=== PATIENT | male | born 1960 | race Caucasian/White ===

== ENCOUNTER 2019-09-04 06:58 | Inpatient (IN) | payer BC, SELFPAY ==
[2019-09-04] VITALS (18 sets, daily range): BP systolic 102–198; BP diastolic 57–90; PULSE 60–84; RESP 15–189; TEMP 36.2–37.1; O2SAT 93–100; BMI 61.0
--- NOTE | ~2019-09-04 | XR_ITS ---
EXAMINATION: XR abdomen/kub 1V DATE: 09/06/2019 09:20 INDICATION: Bilateral renal stones. TECHNIQUE: A supine view of the abdomen on 2 radiographs was obtained. COMPARISON: CT abdomen and pelvis 09/04/2019 FINDINGS: Sensitivity is decreased by obesity. There are no dilated loops of bowel. There are bilater al internal ureteral stent in expected position. IMPRESSION: 1. Bilateral internal ureteral stents in expected position. No visible urolithiasis. Reviewed, dictated and finalized at location A. IMPRESSION: 1. Bilateral internal ureteral stents in expected position. No visible urolithi asis.
--- NOTE | ~2019-09-04 | XR_ITS ---
EXAMINATION: XR retrograde pyelo w/stent BI DATE: 09/04/2019 18:36 INDICATION: Bilateral ureteral stones. TECHNIQUE: 50 intraoperative fluoroscopic images of the abdomen and pelvis were obtained. I was not p resent. Fluoroscopy exposure time was 121 seconds. COMPARISON: CT abdomen and pelvis 09/04/2019 FINDINGS: The bilateral retrograde pyelograms demonstrate stones in the bilateral ureters. The final images demonstrate bilateral internal ureteral stents in expected positions. IMPRESSION: 1. Stones in the ureters. 2. Bilateral internal ureteral stents in expected positions. Reviewed, dictated and finalized at location A.
--- NOTE | ~2019-09-04 | CT_ITS ---
EXAMINATION: CT abdomen pelvis wo con DATE: 09/04/2019 10:51 INDICATION: Acute renal failure TECHNIQUE: Computed tomography (CT) of the abdomen and pelvis was performed without intravenous contr ast. The dose-length product (DLP) was 1726.74 mGy-cm. Automated exposure control and iterative recon struction technique were employed. COMPARISON: None FINDINGS: The lung bases are clear. The heart size is normal. The liver, spleen, pancreas, gallbladde r, and adrenal glands are normal. There are stones of the kidneys which measure up to 11 mm on the ri ght and 6 mm on the left. There is a 4 mm stone in the right renal pelvis. There is a 5 mm stone in t he distal right ureter. There are two 5 mm stones in the distal left ureter near the ureterovesicular junction. There is mild bilateral hydroureteronephrosis. No pathologically enlarged abdominal or pel phil lymph nodes are identified. There is no free intraperitoneal gas or evidence of bowel obstruction . The bladder is decompressed by a Erickson catheter. There is moderate lumbar spondylosis. IMPRESSION: 1. Stones in the bilateral distal ureters and a 4 mm stone in the right renal pelvis with mild bilate ral hydroureteronephrosis. 2. Bilateral nephrolithiasis. Reviewed, dictated and finalized at location A. IMPRESSION: 1. Stones in the bilateral distal ureters and a 4 mm stone in the right renal p terell with mild bilateral hydroureteronephrosis. 2. Bilateral nephrolithiasis.
--- NOTE | ~2019-09-04 | US_ITS ---
EXAMINATION: US renal BI DATE: 09/05/2019 14:52 INDICATION: Acute renal insufficiency. Renal stones. TECHNIQUE: Multiple ultrasound grayscale images of the kidneys were obtained. COMPARISON: None. FINDINGS: The right kidney measures 13.4 x 7.4 x 7.7 cm. The left kidney measures 11.1 x 6.4 x 6.7 cm. The kidn eys demonstrate normal echogenicity. There is no hydronephrosis in either kidney. No stones identifi ed. The bladder is nonvisualized, likely decompressed with a Erickson catheter reportedly in place.. IMPRESSION: 1. Normal kidneys without hydronephrosis. Reviewed, dictated and finalized at location A.
[2019-09-04 09:02] LABS: Basophils Percent Auto 0.2 % (0.2-1.2); Eosinophils Absolute Auto 0.1 K/mm3 (0-0.3); Eosinophils Percent Auto 1.1 % (0-4.4); Hemoglobin 12.3 g/dL (14.0-18.0); Immature Granulocyte Absolute 0.05 K/mm3 (0.00-0.031); Immature Granulocyte Percent A 0.5 % (0-0.5); Lymphocytes Absolute Auto 0.85 K/mm3 (0.9-3.2); Lymphocytes Percent Auto 7.8 % (18.3-44.2); Mean Corpuscular HGB Conc 32.4 g/dl (32-36); Mean Corpuscular Hemoglobin 28.6 pg (26-34); Mean Corpuscular Volume 88.4 fl (80-100); Mean Platelet Volume 9.7 fl (7.4-10.4); Monocytes Absolute Auto 1.1 K/mm3 (0.1-0.6); Monocytes Percent Auto 9.7 % (2.6-8.5); Neutrophils Absolute Auto 8.8 K/mm3 (1.3-6.7); Neutrophils Percent Auto 80.7 % (45.5-73.1); Platelet Count Result 215 k/mm3 (150-375); Red Cell Distribution Width 15.1 % (11.5-14.5); White Blood Count 10.9 K/mm3 (4.5-10.0)
[2019-09-04 09:13] LABS: Alanine Aminotransferase 27 U/L (4-50); Albumin Level 3.9 g/dL (3.5-5.1); Alkaline Phosphatase 50 U/L (38-126); Aspartate Amino Transferase 35 U/L (17-59); Bilirubin,Total 0.5 mg/dL (0.2-1.3); Blood Urea Nitrogen 53 mg/dL (9-20); Calcium 8.5 mg/dL (8.4-10.2); Carbon Dioxide 22 mmol/L (22-30); Chloride 102 mmol/L (98-107); Estimated CRCL calculation 19 ml/min; Estimated Glomerular Filt Rate 8; Glucose 121 mg/dL (75-110); Potassium 5.2 mmol/L (3.4-5.0); Sodium 133 mmol/L (137-145)
--- NOTE | 2019-09-04 10:19 | ECG_ITS ---
Measurements Intervals [place] Rate: 76 P: 50 OR: 195 QRS: -28 QRSD: 130 T: 32 QT: 374 QTc: 423 Interpretive Statements SINUS RHYTHM INTRAVENTRICULAR CONDUCTION DELAY DELAYED PRECORDIAL R/S TRANSITION BORDERLINE ECG Electronically Signed On 09-04-2019 16:36:07 CDT by Vinay Shepherd D.O.
--- NOTE | 2019-09-04 10:20 | ED.GENADULT ---
HPI - General Adult General Chief complaint: Urogenital-Male Stated complaint: unable to void/back pain Time Seen by Provider: 09/04/19 09:44 History of Present Illness HPI narrative: Patient presents for no urine since yesterday. His bladder scan showed 50 ML's of urine. Erickson cath was placed and no urine is been obtained. He has had diarrhea for 2 days, watery. No fever chills sweats cough or cold. He has never had anything wrong with his kidneys. He has had pain in his lower back last night 7 out of 10. Surgeries he has had left meniscal repair and varicocele. Does not smoke drink or do drugs. 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 Related Data Home Medications Medication Instructions Recorded Confirmed nebivolol 5 mg tablet 5 mg PO DAILY 07/15/19 ramipril 10 mg capsule 20 mg PO DAILY cap 07/15/19 Allergies Allergy/AdvReac Type Severity Reaction Status Date / Time Penicillins Allergy Unknown Unknown Verified 07/15/19 08:21 Review of Systems Review of Systems: Narrative: CONSTITUTIONAL: Denies fever, chills, or sweats. EYES: Denies visual changes, redness, or discharge. ENT: Denies rhinorrhea, congestion, sore throat, or otalgia. CARDIOVASCULAR: Denies chest pain, palpitations, or edema. RESPIRATORY: Denies cough or dyspnea. GASTROINTESTINAL: Denies abdominal pain, nausea, vomiting, but he has had diarrhea. GENITOURINARY: Denies dysuria or hematuria. SKIN: Denies rash or itching. MUSCULOSKELETAL: He has low back pain, but not joint pain, or myalgia. NEUROLOGIC: Denies headache, numbness, or weakness. PSYCHIATRIC: Denies anxiety or depression. [facility] Past Medical History Medical History Essential (primary) hypertension History of varicocele Morbid obesity Type 2 diabetes mellitus without complication, without long-term current use of insulin Surgical History Surgical History History of left knee surgery Social History Social History Smoking status: Former smoker Alcohol intake: never Exam Narrative: Exam Narrative: GENERAL: Well-appearing, well-nourished, and in no acute distress. Morbid obesity, thick neck. HEAD: Normocephalic, atraumatic. EYES: PERRLA and EOMI. ENT: Nares clear, no rhinorrhea or epistaxis. Mucous membranes dry. NECK: Supple. CHEST: Clear to auscultation. No respiratory distress. HEART: Regular rate and rhythm. No murmur heard. Normal peripheral pulses. ABDOMEN: Soft, nontender, nondistended, normal active bowel sounds. EXTREMITIES: Normal range of motion. No edema. SKIN: Warm, dry, no rash. NEURO: No focal deficits. Alert and oriented x3. PSYCH: Normal mood and affect. Course Course Emergency Course: Call Dr. Banks earlier and he said he would consult. Reevaluation(s) Reevaluation #1: We need to tell the patient about his kidney stones and his is not present. He did not know he had stones, no one in his family has kidney stones. He will be admitted with a nephrology consult and then possibly a urology consult. Date: 09/04/19 Time: 11:37 Consultations Consultation #1: Call the hospitalist for admission. Dr. Greene accepts. Date: 09/04/19 Time: 11:46 Vital Signs Vital signs: Vital Signs Temperature 97.3 F L 09/04/19 07:04 Pulse Rate 82 09/04/19 07:04 Respiratory Rate 20 09/04/19 07:04 Blood Pressure 198/90 H 09/04/19 07:04 Pulse Oximetry 97 09/04/19 07:04 Temperature 97.3 F L 09/04/19 07:10 Pulse Rate 78 09/04/19 11:38 Respiratory Rate 189 H 09/04/19 11:38 Blood Pressure 153/76 H 09/04/19 11:38 Pulse Oximetry 96 09/04/19 10:34 Medical Decision Making Medical Records Medical records reviewed: Yes I reviewed the patient's medical records. Vital Signs Vital Signs: Vital Signs Temperature 97.3 F L 09/04/19 07:04 Pulse Rate 82 09/04/19 07:04 R
[2019-09-04] MEDS: SODIUM CHLORIDE 0.9% IV 1,000 ML 999 ML IV CONT (10:30)
--- NOTE | 2019-09-04 13:42 | PC.NURSE ---
This patient, Nigel Tomas, was admitted to 3 [facility] Surg Room 316-01. Patient/family oriented to hospital policies and general routines including ID bracelet, bed and alarms, visiting hours, pain management, procedures, bathroom and other care routines, personal items, smoking policy, room service/diet, and visiting hours. Valuables list has been completed. Information on how to activate the Rapid Response Team has been discussed. Patient/Family are encouraged to report perceived risks to care and to ask questions if they do not understand what they are told or what they should do.
--- NOTE | 2019-09-04 14:37 | PM.CNNEP ---
Assessment and Plan Assessment and plan (1) Acute renal failure: Qualifiers: Acute renal failure type: unspecified Qualified Code(s): N17.9 - Acute kidney failure, unspecified Code(s): N17.9 - Acute kidney failure, unspecified Status: Acute (2) Bilateral kidney stones: Code(s): N20.0 - Calculus of kidney Status: Acute (3) Hydronephrosis: Qualifiers: Hydronephrosis type: with renal calculous obstruction Qualified Code(s): N13.2 - Hydronephrosis with renal and ureteral calculous obstruction Code(s): N13.30 - Unspecified hydronephrosis Status: Acute (4) Essential (primary) hypertension: Code(s): I10 - Essential (primary) hypertension Status: Acute (5) Hyperkalemia: Code(s): E87.5 - Hyperkalemia Status: Acute Assessment and Plan: . Additional Plan Nigel has acute kidney injury/acute renal failure as evidenced by his admission labs. Presumably, the etiology of this insult is secondary to his bilateral nephrolithiasis/kidney stones causing bilateral hydroureteronephrosis as evidence by his CT scan earlier today. However, other factors that may have played a role with regard to his rising creatinine include the use of ramipril and nonsteroidal anti-inflammatory drugs. Urology has already been consulted with the tentative plan for status on cystoscopy and further intervention depending what is found during this procedure. I suspect he probably may get bilateral ureteral stents but I will defer this decision to Urology. We will have to follow his kidney function following this intervention/procedure to see if his kidney function normalizes to its baseline. I am assuming he has normal kidney function based on my discussion with him but he does have several risk factors for kidney disease in general including diabetes, hypertension, and obesity. I will continue follow the patient with you while remains hospitalized and make further recommendations during his hospital course. Thank you for allowing me to participate in the care this patient. History of Present Illness Reason for Consult Consult date: 09/04/19 Reason for consult: acute renal failure Chief Complaint Chief complaint: acute renal failure/diarrhea/kidney stones History of Present Illness Narrative: The patient is a 59 year old with a past medical history as outlined below who presented to [facility] with a complaint of inability to urinate. The patient states that he has noted that he has not had any urine output for close to 24 hours which is somewhat unusual for him. Furthermore, he also gave complaints of on/off bilateral flank pain with radiation to his groin on and off as well. Because of these complaints he came to the ER for further evaluation. Workup and evaluation emergency room demonstrate the patient to be hemodynamically stable and routine blood test demonstrated significant renal dysfunction/acute renal failure. He had no critical electrolyte abnormalities although his potassium was mildly elevated. Further evaluation included a CT scan of his abdomen pelvis which demonstrated bilateral kidney stones with associated hydroureteronephrosis. He was subsequently admitted to the hospital for further evaluation and therapy. Renal consultation was requested due to his acute kidney injury/acute renal failure. According to the patient, he has never had any issues or problems with his kidneys in the past and follows up with his primary care physician routinely particularly since he has diabetes. He has no reported history of kidney stones either and reports no other family members with this condition as well. For reasons that are unclear to me, Urology was not consulted from the ER after the findings of his CT scan but after my discussion with Dr. Mirtha Jimenez, he did contact the urologist workers compensation specialist and the plan is for the patient to tentatively undergo cystoscopy with
--- NOTE | 2019-09-04 16:01 | PC.NURSE ---
To OR per bed, IV #20 RT hand, SL.
--- NOTE | 2019-09-04 16:07 | PM.IMHP ---
H&P: HPI History of Present Illness Chief complaint: acute renal failure/diarrhea/kidney stones Narrative: Nigel Tomas is a 59 year old male morbidly obese male with history of diabetes and hypertension presented emergency department with a complaint bilateral flank pain on and off radiating to his groin and was not able to urinate close to 24 hours Erickson catheter was placed in the emergency depart no urine output, he also had few episode of diarrhea yesterday which have now resolved he denies any nausea vomiting fever or chills, patient has no history of kidney stone. in Emergency department patient had a CT scan of abdomen which showed patient has a bilateral kidney stone with hydronephrosis, discussed with urologist recommending patient will need cystoscopy and removal of the stone and placement of stents, upon arrival patient creatinine was 7 and BUN 55 discussed with marketing segment manager suspect most likely secondary to hydronephrosis, seen by marketing segment manager and further workup in progress, patient denies any complaint of chest pain his able to ambulate without any shortness of breath however is unable to climb any stairs due to his pain in his knee and morbid obesity, patient has had general anesthesia in the past without any complication, will clear the patient for the surgery Review of Systems Review of Systems: All systems reviewed & are unremarkable except as noted in HPI and below PMFSH Past Medical History Medical History Essential (primary) hypertension History of varicocele Morbid obesity Type 2 diabetes mellitus without complication, without long-term current use of insulin Surgical History Surgical History History of left knee surgery Family History Family History Mother Hypertension Cerebrovascular accident Family history of diabetes mellitus in first degree relative Family history of malignant neoplasm of uterus Social History Social History Smoking packs per day: 1 Smoking cigarettes per day: 20.0 Years smoked: 2 Smoking pack-years: 2.00 Smoking status: Former smoker Tobacco type: cigarettes Alcohol intake: never Substance use: never Substance use type: does not use Gender identity (if verbalized by the patient): Male Sexual Orientation (if Verbalized by the Patient): Straight or Heterosexual Spiritual care concerns: No Meds Home Medications and Allergies Home Medications Medication Instructions Recorded Confirmed Type meloxicam 15 mg tablet 15 mg PO DAILY #90 tablet 03/01/19 09/04/19 Rx ezetimibe 10 mg tablet 10 mg PO DAILY #90 tablet 03/07/19 09/04/19 Rx hydrochlorothiazide 25 mg tablet 25 mg PO DAILY #90 tablet 03/07/19 09/04/19 Rx fluticasone propionate 50 1 spray NASAL DAILY #15.8 ml 05/08/19 09/04/19 Rx mcg/actuation nasal spray,suspension testosterone cypionate 200 mg/mL 200 mg IM .COMPLEX #10 ml 05/19/19 09/04/19 Rx intramuscular oil metformin 1,000 mg tablet See Rx Instructions PO DAILY #180 07/15/19 09/04/19 Rx tablet nebivolol 5 mg tablet 5 mg PO DAILY 07/15/19 09/04/19 History omeprazole 20 mg capsule,delayed 20 mg PO DAILY #90 cap 07/15/19 09/04/19 Rx release ramipril 10 mg capsule 20 mg PO DAILY cap 07/15/19 09/04/19 History aspirin 81 mg PO DAILY 09/04/19 09/04/19 History calcium polycarbophil [FiberCon] 1,250 mg PO BID 09/04/19 09/04/19 History Allergies Allergy/AdvReac Type Severity Reaction Status Date / Time Penicillins Allergy Unknown Unknown Verified 07/15/19 08:21 Vital Signs Vital Signs - 24 hr 09/04/19 07:04 09/04/19 07:10 09/04/19 10:34 Temperature 97.3 F L 97.3 F L Pulse Rate 82 82 74 Respiratory Rate 20 18 18 Blood Pressure 198/90 H 198/90 H 165/73 H Pulse Oximetry 97 97 96 09/04/19 11:38
--- NOTE | 2019-09-04 16:17 | WPDANESEPPF ---
Anes - Initial Pre Proc Eval Procedure: Operation Date: 09/04/19 17:00 Proposed Procedures p Cysto, RPG, Stone Ext, Stent Placement - Micah Escudero MD Date/Time: 09/04/19 16:17 Surgeon: Rafal Greene MD Pre Op Diagnosis: acute renal failure/diarrhea/kidney stones Patient Data Age: 59 Gender: M Height: 6 ft Weight: 204.12 kg Last Vital Signs Temp 37.1 C 09/04/19 13:50 Pulse 76 09/04/19 13:50 Resp 18 09/04/19 13:50 BP 192/88 H 09/04/19 13:50 Pulse Ox 98 09/04/19 13:50 Allergies Allergy/AdvReac Type Severity Reaction Status Date / Time Penicillins Allergy Unknown Unknown Verified 07/15/19 08:21 Home Medications Medication Instructions Recorded Confirmed Type meloxicam 15 mg tablet 15 mg PO DAILY #90 tablet 03/01/19 09/04/19 Rx ezetimibe 10 mg tablet 10 mg PO DAILY #90 tablet 03/07/19 09/04/19 Rx hydrochlorothiazide 25 mg tablet 25 mg PO DAILY #90 tablet 03/07/19 09/04/19 Rx fluticasone propionate 50 1 spray NASAL DAILY #15.8 ml 05/08/19 09/04/19 Rx mcg/actuation nasal spray,suspension testosterone cypionate 200 mg/mL 200 mg IM .COMPLEX #10 ml 05/19/19 09/04/19 Rx intramuscular oil metformin 1,000 mg tablet See Rx Instructions PO DAILY #180 07/15/19 09/04/19 Rx tablet nebivolol 5 mg tablet 5 mg PO DAILY 07/15/19 09/04/19 History omeprazole 20 mg capsule,delayed 20 mg PO DAILY #90 cap 07/15/19 09/04/19 Rx release ramipril 10 mg capsule 20 mg PO DAILY cap 07/15/19 09/04/19 History aspirin 81 mg PO DAILY 09/04/19 09/04/19 History calcium polycarbophil [FiberCon] 1,250 mg PO BID 09/04/19 09/04/19 History Laboratory Tests 09/04/19 09/04/19 08:57 08:57 WBC 10.9 K/mm3 H K/mm3 (4.5-10.0) RBC 4.30 M/mm3 L M/mm3 (4.6-6.20) Hgb 12.3 g/dL L g/dL (14.0-18.0) Hct 38.0 % L % (42.0-52.0) MCV 88.4 fl fl (80-100) MCH 28.6 pg pg (26-34) MCHC 32.4 g/dl g/dl (32-36) RDW 15.1 % H % (11.5-14.5) Plt Count 215 k/mm3 k/mm3 (150-375) MPV 9.7 fl fl (7.4-10.4) Immature Gran % (Auto) 0.5 % % (0-0.5) Neut % (Auto) 80.7 % H % (45.5-73.1) Lymph % (Auto) 7.8 % L % (18.3-44.2) [place] % (Auto) 9.7 % H % (2.6-8.5) Eos % (Auto) 1.1 % % (0-4.4) Baso % (Auto) 0.2 % % (0.2-1.2) Lymph # (Auto) 0.85 K/mm3 L K/mm3 (0.9-3.2) [place] # (Auto) 1.1 K/mm3 H K/mm3 (0.1-0.6) Eos # (Auto) 0.1 K/mm3 K/mm3 (0-0.3) Baso # (Auto) 0.0 K/mm3 K/mm3 (0.0-0.1) Abs Immat Gran (auto) 0.05 K/mm3 H K/mm3 (0.00-0.031) Absolute Neuts (auto) 8.8 K/mm3 H K/mm3 (1.3-6.7) Absolute Nucleated RBC 0.0 K/mm3 K/mm3 (0.0-0.012) Nucleated RBC % 0.0 % % (0.0-0.2) Sodium 133 mmol/L L mmol/L (137-145) Potassium 5.2 mmol/L H mmol/L (3.4-5.0) Chloride 102 mmol/L mmol/L (98-107) Carbon Dioxide 22 mmol/L mmol/L (22-30) BUN 53 mg/dL H mg/dL (9-20) Creatinine 7.00 mg/dL H mg/dL (0.7-1.3) Estim Creat Clear Calc 19 ml/min ml/min Estimated GFR 8 L (59 - ) Glucose 121 mg/dL H mg/dL (75-110) Calcium 8.5 mg/dL mg/dL (8.4-10.2) Total Bilirubin 0.5 mg/dL mg/dL (0.2-1.3) AST 35 U/L U/L (17-59) ALT 27 U/L U/L (4-50) Alkaline Phosphatase 50 U/L U/L (38-126) Total Protein 7.0 g/dL g/dL (6.3-8.2) Albumin 3.9 g/dL g/dL (3.5-5.1) Patient hx anesthesia problems: none Family hx anesthesia problems: none [facility] Past Medical History Medical History Essential (primary) hypertension History of varicocele Morbid obesity Type 2 diabetes mellitus without complication, without long-term current use of insulin Surgical History Surgical History History of left knee surgery Family History F
--- NOTE | 2019-09-04 17:04 | WPDURCON ---
Assessment and Plan Assessment and plan (1) Hydronephrosis: Qualifiers: Hydronephrosis type: with renal calculous obstruction Qualified Code(s): N13.2 - Hydronephrosis with renal and ureteral calculous obstruction Code(s): N13.30 - Unspecified hydronephrosis Status: Acute Assessment and Plan: Patient need emergent cystoscopy and stenting. Will plan to extract both stones with ureteroscopy and possible laser lithotripsy (2) Bilateral kidney stones: Code(s): N20.0 - Calculus of kidney Status: Acute (3) Acute renal failure: Qualifiers: Acute renal failure type: unspecified Qualified Code(s): N17.9 - Acute kidney failure, unspecified Code(s): N17.9 - Acute kidney failure, unspecified Status: Acute Assessment and Plan: Needs ureteral obstruction relieved-------acute renal failue noted and discussed medical and surgical treatments (4) Type 2 diabetes mellitus without complication, without long-term current use of insulin: Code(s): E11.9 - Type 2 diabetes mellitus without complications Status: Acute Assessment and Plan: per admitting Urology Consult Note HPI Date Seen: 09/04/19 Requesting Physician: Rafal Greene MD Primary Care Provider: Ben Esquivel MD Consult Narrative Narrative: Nigel Tomas is a 59 year old male with bilateral ureteral stones and acute renal failure. He is now anuric. Denies fever or chills. Has some nausea and admitted with bilateral renal colic pain. Review of Systems Constitutional: Constitutional: Reports no additional constitutional complaints Eyes: Eyes: Reports no additional eye complaints ENT: Reports Normal hearing present Cardiovascular: Cardiovascular: Reports no additional cardiovascular complaints and Denies chest pain Respiratory: Respiratory: Reports no additional respiratory complaints Musculoskeletal: Musculoskeletal: Reports no additional musculoskeletal complaints Neurologic: Reports system reviewed and no additional complaints, except as documented Allergic/Immunologic: Allergic/Immunologic: Reports no additional allergic/immunologic complaints [facility] Past Medical History Medical History Essential (primary) hypertension History of varicocele Morbid obesity Type 2 diabetes mellitus without complication, without long-term current use of insulin Surgical History Surgical History History of left knee surgery Family History Family History Mother Hypertension Cerebrovascular accident Family history of diabetes mellitus in first degree relative Family history of malignant neoplasm of uterus Social History Social History Smoking packs per day: 1 Smoking cigarettes per day: 20.0 Years smoked: 2 Smoking pack-years: 2.00 Smoking status: Former smoker Tobacco type: cigarettes Alcohol intake: never Substance use: never Substance use type: does not use Gender identity (if verbalized by the patient): Male Sexual Orientation (if Verbalized by the Patient): Straight or Heterosexual Spiritual care concerns: No Meds Home Medications and Allergies Home Medications Medication Instructions Recorded Confirmed Type meloxicam 15 mg tablet 15 mg PO DAILY #90 tablet 03/01/19 09/04/19 Rx ezetimibe 10 mg tablet 10 mg PO DAILY #90 tablet 03/07/19 09/04/19 Rx hydrochlorothiazide 25 mg tablet 25 mg PO DAILY #90 tablet 03/07/19 09/04/19 Rx fluticasone propionate 50 1 spray NASAL DAILY #15.8 ml 05/08/19 09/04/19 Rx mcg/actuation nasal spray,suspension testosterone cypionate 200 mg/mL 200 mg IM .COMPLEX #10 ml 05/19/19 09/04/19 Rx intramuscular oil metformin 1,000 mg tablet See Rx Instructions PO DAILY #180 07/14
[2019-09-04] MEDS: levoFLOXacin 500 MG/D5W 100 ML 500 MG/100 ML BAG 100 MG IVPB (17:44)
[2019-09-04] MEDS: LIDOCAINE HCL 2% GEL UROJET 10 ML PKG MUCOUS MEM (18:02)
--- NOTE | 2019-09-04 18:18 | PM.PROC ---
Procedure Note - Detailed Date of procedure: 09/04/19 Pre-op diagnosis: acute renal failure/diarrhea/kidney stones Surgeon: Micah Escudero MD Pre Op Dx: Bilateral ureteral stones, acute renal failure Post Op Dx: same Anesthesia: Genreral Operation: cystoscopy, bilateral ureteroscopy and stone extractions, bilateral stents
[2019-09-04] MEDS: LACTATED RINGERS 1,000 ML 30 ML IV CONT (18:25)
[2019-09-04 19:26] LABS: Glucose Point of Care 90 (65-105)
--- NOTE | 2019-09-04 23:37 | OP_ITS ---
DATE OF PROCEDURE: 09/04/2019 PREOPERATIVE DIAGNOSES: Bilateral ureteral calculus, bilateral hydronephrosis, acute renal failure. POSTOPERATIVE DIAGNOSES: Bilateral ureteral calculus, bilateral hydronephrosis, acute renal failure. OPERATION: Cystourethroscopy with bilateral retrograde pyelogram, bilateral ureteroscopy with stone extraction, bilateral ureteral stents. COMPLICATIONS: None. ANESTHESIA: General anesthetic. ESTIMATED BLOOD LOSS: Negligible. SPECIMENS: Bilateral ureteral calculi. HISTORY AND OPERATIVE COURSE: The patient is a pleasant 59-year-old gentleman with morbid obesity and type 2 diabetes, began having abrupt onset of pain, prompting this evaluation in the emergency room, he was found to have bilateral ureteral calculi and laboratory values consistent with acute renal failure. He had been anuric over the majority of today. He signed a consent. DESCRIPTION OF PROCEDURE: He was brought back to the operating room. General anesthetic was achieved with LMA. He was positioned in lithotomy. His phallus, scrotum, lower abdomen and pelvis were dressed and draped in normal sterile fashion. Cystourethroscopy was used to examine the urethra past the prostate into the bladder. The bladder revealed no obvious mass lesions or abnormalities with some mild trabeculation. The ureteral orifices were visualized. There was no efflux seen from either. I first shot a retrograde study in the right side near the distal stone visualized in the intramural portion of the ureter with subsequent hydronephrosis. There is also mentioning that he may have a stone in the renal pelvis, which was difficult to see given the size of the patient. In addition, he has a sizable stone in the right kidney and there is suggestion of a stone visualized. 8/10 dilator to dilate the ureter and incomplete ureteroscopy with mini-Storz ureteroscope. I was then able to complete stone extraction using escape basket. The stone was grasped and removed in its entirety. Ureterostomy was completed again. I could not get the scope any further than the pelvic inlet and retrograde study demonstrated no extravasation and filling throughout the ureter up into the renal pelvis. The ureteroscope was removed under direct vision. The guidewire was left in place, and over the guidewire a stent was placed in a retrograde fashion through the cystoscope. This a 6-Honduran stent with a variable length up to 30 cm. I then focused my attention on the left side, a similar procedure was completed and retrograde study actually demonstrated 2 stones in the distal ureter. I was able to negotiate guidewire via the stones up into the kidney and 8/10 dilator was once again used to dilate the distal ureter. Ureteroscopy was completed and the stones were grasped and removed one at a time in their entirety within escape basket. On the side, I also placed a stent, this is the same size stent. A 6-Honduran by variable length up to 30 cm. There was good curl visualized in the renal pelves on both sides and a good curl was visualized in the bladder via the cystoscope. There was some old appearing bloody debris on the right side and some milky appearing to be drained on the left side. I left the Erickson catheter in place. The patient was transferred in the recovery area in stable condition. Addis I MT: Fam
[2019-09-05] VITALS (8 sets, daily range): BP systolic 135–160; BP diastolic 62–82; PULSE 63–75; RESP 16–20; TEMP 36.3–37.2; O2SAT 95–97
--- NOTE | 2019-09-05 01:04 | PC.NURSE ---
pt returns from surgery alert and awake. refused meal at this time however is taking oral fluid well w/o n/v. 09/04/192019
[2019-09-05 04:02] LABS: Creatinine Urine 69.4 mg/dL; Total Protein Urine Random 92 mg/dL
[2019-09-05 04:13] LABS: Sodium Urine Random 56 meq/L
[2019-09-05 06:47] LABS: Hematocrit 34.4 % (42.0-52.0); Mean Corpuscular Hemoglobin 28.8 pg (26-34); Mean Corpuscular Volume 90.1 fl (80-100); Mean Platelet Volume 9.8 fl (7.4-10.4); Platelet Count Result 185 k/mm3 (150-375); Red Blood Count 3.82 M/mm3 (4.6-6.20); Red Cell Distribution Width 15.5 % (11.5-14.5); White Blood Count 9.2 K/mm3 (4.5-10.0)
[2019-09-05 07:25] LABS: Albumin Level 3.5 g/dL (3.5-5.1); Blood Urea Nitrogen 55 mg/dL (9-20); Calcium 8.1 mg/dL (8.4-10.2); Carbon Dioxide 25 mmol/L (22-30); Chloride 103 mmol/L (98-107); Estimated CRCL calculation 18 ml/min; Estimated Glomerular Filt Rate 8; Glucose 95 mg/dL (75-110); Phosphorus 5.6 mg/dL (2.5-4.5); Potassium 4.7 mmol/L (3.4-5.0); Sodium 137 mmol/L (137-145)
[2019-09-05 07:32] LABS: Blood Urea Nitrogen 54 mg/dL (9-20); Carbon Dioxide 25 mmol/L (22-30); Chloride 103 mmol/L (98-107); Estimated CRCL calculation 19 ml/min; Estimated Glomerular Filt Rate 8; Glucose 94 mg/dL (75-110); Potassium 4.6 mmol/L (3.4-5.0); Sodium 135 mmol/L (137-145)
--- NOTE | 2019-09-05 08:37 | WPDANESPN ---
Anes - Prog Note Post-Op Date/Time: 09/05/19 08:37 Cardiovascular status: normal Respiratory status: normal Airway patency: baseline Mental status: baseline Post-Op hydration status: normal Vital Signs: Last Vital Signs Temp 36.3 C L 09/05/19 06:41 Pulse 68 09/05/19 06:41 Resp 18 09/05/19 06:41 BP 148/71 H 09/05/19 06:41 Pulse Ox 97 09/05/19 06:41 I/O: Intake & Output 09/04/19 09/05/19 09/05/19 23:59 07:59 15:59 Intake Total 950 500 Output Total 375 3100 Balance 575 -2600 Laboratory Tests 09/05/19 06:12 09/05/19 06:12 09/04/19 09/04/19 09/04/19 08:57 08:57 19:24 WBC 10.9 H RBC 4.30 L Hgb 12.3 L Hct 38.0 L MCV 88.4 MCH 28.6 MCHC 32.4 RDW 15.1 H Plt Count 215 MPV 9.7 Immature Gran % (Auto) 0.5 Neut % (Auto) 80.7 H Lymph % (Auto) 7.8 L [place] % (Auto) 9.7 H Eos % (Auto) 1.1 Baso % (Auto) 0.2 Lymph # (Auto) 0.85 L [place] # (Auto) 1.1 H Eos # (Auto) 0.1 Baso # (Auto) 0.0 Abs Immat Gran (auto) 0.05 H Absolute Neuts (auto) 8.8 H Absolute Nucleated RBC 0.0 Nucleated RBC % 0.0 Sodium 133 L Potassium 5.2 H Chloride 102 Carbon Dioxide 22 BUN 53 H Creatinine 7.00 H Estim Creat Clear Calc 19 Estimated GFR 8 L Glucose 121 H POC Capillary Glucose 90 Calcium 8.5 Phosphorus Total Bilirubin 0.5 AST 35 ALT 27 Alkaline Phosphatase 50 Total Protein 7.0 Albumin 3.9 Urine Eosinophils Ur Random Creatinine U Random Total Protein Ur Random Sodium Ur Random Chloride U Random Chloride/Creat Urine Total Volume Urine Creatinine 09/05/19 09/05/19 09/05/19 03:38 03:38 03:38 WBC RBC Hgb Hct MCV MCH MCHC RDW Plt Count MPV Immature Gran % (Auto) Neut % (Auto) Lymph % (Auto) [place] % (Auto) Eos % (Auto) Baso % (Auto) Lymph # (Auto) [place] # (Auto) Eos # (Auto) Baso # (Auto) Abs Immat Gran (auto) Absolute Neuts (auto) Absolute Nucleated RBC Nucleated RBC % Sodium Potassium Chloride Carbon Dioxide BUN Creatinine Estim Creat Clear Calc Estimated GFR Glucose POC Capillary Glucose Calcium Phosphorus Total Bilirubin AST ALT Alkaline Phosphatase Total Protein Albumin Urine Eosinophils Pending Ur Random Creatinine Pending U Random Total Protein Ur Random Sodium 56 Ur Random Chloride Pending U Random Chloride/Creat Pending Urine Total Volume Urine Creatinine Cancelled 09/05/19 09/05/19 09/05/19 03:38 03:38 06:12 WBC 9.2 RBC 3.82 L Hgb 11.0 L Hct 34.4 L MCV 90.1 MCH 28.8 MCHC 32.0 RDW 15.5 H Plt Count 185 MPV 9.8 Immature Gran % (Auto) Neut % (Auto) Lymph % (Auto) [place] % (Auto) Eos % (Auto) Baso % (Auto) Lymph # (Auto) [place] # (Auto) Eos # (Auto) Baso # (Auto) Abs Immat Gran (auto) Absolute Neuts (auto) Absolute Nucleated RBC Nucleated RBC % Sodium Potassium Chloride Carbon Dioxide BUN Creatinine Estim Creat Clear Calc Estimated GFR Glucose POC Capillary Glucose Calcium Phosphorus Total Bilirubin AST ALT Alkaline Phosphatase Total Protein Albumin Urine Eosinophils Ur Random Creatinine U Random Total Protein 92 Cancelled Ur Random Sodium Ur Random Chloride U Random Chloride/Creat Urine Total Volume Cancelled Urine Creatinine 69.4 09/05/19 09/05/19 06:12 06:12 WBC RBC Hgb Hct MCV MCH MCHC RDW Plt Count MPV Immature Gran % (Auto) Neut % (Auto) Lymph % (Auto) [place] % (Auto) Eos % (Auto) Baso % (Auto) Lymph # (Auto) [place] # (Auto) Eos # (Auto) Baso # (Auto) Abs Immat Gran (auto) Absolute Neuts (auto) Absolute Nucleated RBC Nucleated
[2019-09-05] MEDS: SODIUM CHLORIDE 0.9% IV 1,000 ML 125 ML IV CONT ×2 (08:52→20:49)
[2019-09-05] MEDS: NEBIVOLOL HCL 5 MG TABLET PO (08:59)
[2019-09-05] MEDS: calcium polycarbophiL 625 MG TABLET 1250 MG PO ×2 (08:59→16:35)
[2019-09-05] MEDS: EZETIMIBE 10 MG TABLET PO (08:59)
[2019-09-05] MEDS: ASPIRIN 81 MG CHEWABLE TABLET PO (08:59)
[2019-09-05] MEDS: PANTOPRAZOLE 40 MG TABLET PO (08:59)
[2019-09-05] MEDS: ramipriL 5 MG CAPSULE 20 MG PO (09:00)
[2019-09-05] MEDS: FLUTICASONE PROPIONATE 0.05% NA SPR 16 GM BTL (*BKC) 1 SPRAY NASAL (09:01)
--- NOTE | 2019-09-05 09:03 | SUR.PHASEI ---
LATE ENTRY: URINE DRAINING FROM [facility].
--- NOTE | 2019-09-05 10:16 | WPDUROPN2 ---
Progress Note: A&P Assessment and Plan (1) Bilateral ureteral calculi: Code(s): N20.1 - Calculus of ureter Status: Acute Assessment and Plan: stents to be removed as a outpt (2) Renal insufficiency: Code(s): N28.9 - Disorder of kidney and ureter, unspecified Status: Acute (3) Bilateral kidney stones: Code(s): N20.0 - Calculus of kidney Status: Acute Assessment and Plan: outpt treatment Subjective Subjective Date/Time Seen: 09/05/19 10:16 no issues. Tolerating stents Exam Const: General: no acute distress Extrem: General: normal to inspection Objective Data Vital Signs Vital Signs: Vital Signs - 24 hr 09/04/19 10:34 09/04/19 11:38 09/04/19 13:00 Temperature Pulse Rate 74 78 75 Respiratory Rate 18 189 H 18 Blood Pressure 165/73 H 153/76 H 169/77 H Pulse Oximetry 96 100 09/04/19 13:43 09/04/19 13:50 09/04/19 18:25 Temperature 98.7 F 97.1 F L Pulse Rate 75 76 84 Respiratory Rate 18 18 25 H Blood Pressure 192/88 H 102/57 L Pulse Oximetry 100 98 97 09/04/19 18:40 09/04/19 18:55 09/04/19 19:10 Temperature 97.4 F L Pulse Rate 72 73 70 Respiratory Rate 18 18 19 Blood Pressure 193/83 H 174/84 H 174/80 H Pulse Oximetry 97 97 94 09/04/19 19:25 09/04/19 19:40 09/04/19 20:10 Temperature 97.7 F Pulse Rate 70 72 60 Respiratory Rate 16 15 20 Blood Pressure 174/80 H 165/77 H 152/71 H Pulse Oximetry 93 94 96 09/04/19 21:11 09/04/19 22:30 09/04/19 22:40 Temperature 97.6 F Pulse Rate 69 69 64 Respiratory Rate 18 Blood Pressure 147/68 H Pulse Oximetry 97 97 09/04/19 22:41 09/05/19 00:00 09/05/19 02:41 Temperature 97.1 F L 97.3 F L Pulse Rate 65 67 63 Respiratory Rate 20 18 Blood Pressure 140/62 135/62 Pulse Oximetry 97 97 09/05/19 04:00 09/05/19 06:41 Temperature 97.4 F L Pulse Rate 67 68 Respiratory Rate 18 Blood Pressure 148/71 H Pulse Oximetry 97 Intake/Output Intake/Output: Intake & Output 09/02/19 09/03/19 09/04/19 09/05/19 23:59 23:59 23:59 23:59 Intake Total 1950 500 Output Total 375 3100 Balance 1575 -2600 Meds/Results Medications: Active Medications Generic Name Dose Route Start Last Admin Trade Name Freq PRN Reason Stop Dose Admin Acetaminophen 650 mg 09/04/19 12:23 Tylenol Tablet PO Q4H PRN Mild Pain (1-3) or Fever Aspirin 81 mg 09/05/19 09:00 09/05/19 08:59 Aspirin Chewable PO 81 mg DAILY BASSAM Administration Calcium Polycarbophil 1,250 mg 09/05/19 09:00 09/05/19 08:59 Fiber Con PO 1,250 mg BID BASSAM Administration Ezetimibe 10 mg 09/05/19 09:00 09/05/19 08:59 Zetia PO 10 mg DAILY BASSAM Administration Fluticasone Propionate 1 spray 09/05/19 09:00 09/05/19 09:01 Flonase 0.05% Nasal [place] NASAL 1 spray DAILY BASSAM Administration Hydrochlorothiazide 25 mg 09/05/19 09:00 Hydrochlorothiazide PO DAILY BASSAM Sodium Chloride 1,000 mls @ 125 mls/hr 09/05/19 08:10 09/05/19 08:52 Normal Saline Iv IV CONT 125 mls/hr .Q8H BASSAM Administration Nebivolol 5 mg 09/05/19 09:00 09/05/19 08:59 Bystolic PO 5 mg DAILY BASSAM Administration Ondansetron HCl 4 mg 09/04/19 12:23 Zofran Inj IV PUSH Q4H PRN Nausea Pantoprazole Sodium 40 mg 09/05/19 09:00 09/05/19 08:59 Protonix PO 10/05/19 09:01 40 mg DAILY BASSAM Administration Ramipril 20 mg 09/05/19 09:00 09/05/19 09:00 Altace PO 20 mg DAILY BASSAM Administration Radiology Results: ITS Impressions Abdomen/Pelvis CT 09/04/19 11:01 IMPRESSION: 1. Stones in the bilateral distal ureters and a 4 mm stone in the right renal pelvis with mild bilateral hydroureteronephrosis. 2. Bilateral nephrolithiasis. Retrograde Pyelogram 09/04/19 19:01 IMPRESSION: 1. Stones in the ureters. 2. Bilateral internal ureteral stents in expected positions. Labs Labs: Laboratory Results - last 24 hr 09/04/19 06/
--- NOTE | 2019-09-05 13:19 | PM.PNNEP ---
Progress Note: A&P Assessment and Plan (1) Acute renal failure: Qualifiers: Acute renal failure type: unspecified Qualified Code(s): N17.9 - Acute kidney failure, unspecified Code(s): N17.9 - Acute kidney failure, unspecified Status: Acute Assessment and Plan: Multiple kidney stones in both ureters. Stents are in place. Large amount of urine. Will get another renal panel in the morning (2) Bilateral kidney stones: Code(s): N20.0 - Calculus of kidney Status: Acute Assessment and Plan: Urology managing this. Once procedures have all been done then we can get 24hour urines a month or 2 later to investigate causes of formation of the stones. (3) Hydronephrosis: Qualifiers: Hydronephrosis type: with renal calculous obstruction Qualified Code(s): N13.2 - Hydronephrosis with renal and ureteral calculous obstruction Code(s): N13.30 - Unspecified hydronephrosis Status: Acute Assessment and Plan: Stents in place (4) Essential (primary) hypertension: Code(s): I10 - Essential (primary) hypertension Status: Acute Assessment and Plan: Blood pressure is doing pretty well. (5) Hyperkalemia: Code(s): E87.5 - Hyperkalemia Status: Acute Assessment and Plan: . Resolved Additional Plan Subjective Date/time seen: 09/05/19 13:19 Interval history: Patient is alert. He feels better. Urine output is way up. No chest pain or shortness of breath. Not much swelling. He does occasionally have some at home. Review of Systems Cardiovascular: Cardiovascular: Reports no additional cardiovascular complaints Respiratory: Respiratory: Reports no additional respiratory complaints Gastrointestinal: Gastrointestinal: Reports no additional gastrointestinal complaints Genitourinary: Genitourinary: Reports no additional male genitourinary complaints Exam Narrative: Exam Narrative: WDWN in NAD skin no rash head ncat lungs clear cor reg no rub abd BS+ nontender and soft ext no edema. Or cyanosis Objective Data Vital Signs Vital Signs: Vital Signs - 24 hr 09/04/19 13:43 09/04/19 13:50 09/04/19 18:25 Temperature 37.1 C 36.2 C L Pulse Rate 75 76 84 Respiratory Rate 18 18 25 H Blood Pressure 192/88 H 102/57 L Pulse Oximetry 100 98 97 09/04/19 18:40 09/04/19 18:55 09/04/19 19:10 Temperature 36.3 C L Pulse Rate 72 73 70 Respiratory Rate 18 18 19 Blood Pressure 193/83 H 174/84 H 174/80 H Pulse Oximetry 97 97 94 09/04/19 19:25 09/04/19 19:40 09/04/19 20:10 Temperature 36.5 C Pulse Rate 70 72 60 Respiratory Rate 16 15 20 Blood Pressure 174/80 H 165/77 H 152/71 H Pulse Oximetry 93 94 96 09/04/19 21:11 09/04/19 22:30 09/04/19 22:40 Temperature 36.4 C Pulse Rate 69 69 64 Respiratory Rate 18 Blood Pressure 147/68 H Pulse Oximetry 97 97 09/04/19 22:41 09/05/19 00:00 09/05/19 02:41 Temperature 36.2 C L 36.3 C L Pulse Rate 65 67 63 Respiratory Rate 20 18 Blood Pressure 140/62 135/62 Pulse Oximetry 97 97 09/05/19 04:00 09/05/19 06:41 Temperature 36.3 C L Pulse Rate 67 68 Respiratory Rate 18 Blood Pressure 148/71 H Pulse Oximetry 97 Intake/Output Intake/Output: Intake & Output 09/02/19 09/03/19 09/04/19 09/05/19 23:59 23:59 23:59 23:59 Intake Total 1950 740 Output Total 375 3100 Balance 1575 -2360 Meds/Results Medications: Active Medications Generic Name Dose Route Start Last Admin Trade Name Freq PRN Reason Stop Dose Admin Acetaminophen 650 mg 09/04/19 12:23 Tylenol Tablet PO Q4H PRN Mild Pain (1-3) or Fever Aspirin 81 mg 09/05/19 09:00 09/05/19 08:59 Aspirin Chewable PO 81 mg DAILY BASSAM Administration Calcium Polycarbophil 1,250 mg 09/05/19 09:00 09/05/19 08:59 Fiber Con PO 1,250 mg BID BASSAM Administration Ezetimibe 10 mg 09/05/19 09:00 09/05/19 08:59 Zetia PO 10 mg
[2019-09-05] MEDS: hydroCHLOROthiazide 25 MG TABLET PO (16:35)
--- NOTE | 2019-09-05 17:50 | PM.IMPN ---
Progress Note: A&P Assessment and Plan (1) Hydronephrosis: Qualifiers: Hydronephrosis type: with renal calculous obstruction Qualified Code(s): N13.2 - Hydronephrosis with renal and ureteral calculous obstruction Code(s): N13.30 - Unspecified hydronephrosis Status: Acute Assessment and Plan: Nigel Tomas is a 59 year old male morbidly obese male with history of diabetes and hypertension presented emergency department with a complaint bilateral flank pain on and off radiating to his groin and was not able to urinate close to 24 hours Reickson catheter was placed in the emergency depart no urine output, he also had few episode of diarrhea yesterday which have now resolved he denies any nausea vomiting fever or chills, patient has no history of kidney stone. in Emergency department patient had a CT scan of abdomen which showed patient has a bilateral kidney stone with hydronephrosis, discussed with urologist recommending patient will need cystoscopy and removal of the stone and placement of stents, upon arrival patient creatinine was 7 and BUN 55 discussed with patient scheduling manager suspect most likely secondary to hydronephrosis, seen by patient scheduling manager and further workup in progress, on 09/03 patient was seen by urologist and taken to urology lab had a cystoscopy and stones were removed stents were placed patient was able to urinate, today patient is feeling much better has been producing lot of urine, has any abdominal pain nausea or vomiting fever or chills patient creatinine is still elevated to 7 will continue hydrate the patient patient is seen by patient scheduling manager and further recommendation to follow (2) Bilateral kidney stones: Code(s): N20.0 - Calculus of kidney Status: Acute Assessment and Plan: Plan is Plan is (3) Type 2 diabetes mellitus without complication, without long-term current use of insulin: Code(s): E11.9 - Type 2 diabetes mellitus without complications Status: Acute Assessment and Plan: Resume home medication and monitor (4) Essential (primary) hypertension: Code(s): I10 - Essential (primary) hypertension Status: Acute Assessment and Plan: Resume home medication and monitor (5) Acute renal failure: Qualifiers: Acute renal failure type: unspecified Qualified Code(s): N17.9 - Acute kidney failure, unspecified Code(s): N17.9 - Acute kidney failure, unspecified Status: Acute Assessment and Plan: Plan is above Subjective Date/time seen: 09/05/19 17:50 Interval history: Nigel Tomas is a 59 year old male morbidly obese male with history of diabetes and hypertension presented emergency department with a complaint bilateral flank pain on and off radiating to his groin and was not able to urinate close to 24 hours Erickson catheter was placed in the emergency depart no urine output, he also had few episode of diarrhea yesterday which have now resolved he denies any nausea vomiting fever or chills, patient has no history of kidney stone. in Emergency department patient had a CT scan of abdomen which showed patient has a bilateral kidney stone with hydronephrosis, discussed with urologist recommending patient will need cystoscopy and removal of the stone and placement of stents, upon arrival patient creatinine was 7 and BUN 55 discussed with patient scheduling manager suspect most likely secondary to hydronephrosis, seen by patient scheduling manager and further workup in progress, on 09/03 patient was seen by urologist and taken to urology lab had a cystoscopy and stones were removed stents were placed patient was able to urinate, today patient is feeling much better has been producing lot of urine, has any abdominal pain nausea or vomiting fever or chills patient creatinine is still elevated to 7 will continue hydrate the patient patient is seen by patient scheduling manager and further recommendation to follow Review of Systems Review of Systems: All systems reviewed & are u
[2019-09-06 06:00] VITALS: BP 142/76; PULSE 66; RESP 20; TEMP 37.2; O2SAT 95
[2019-09-06] MEDS: SODIUM CHLORIDE 0.9% IV 1,000 ML 125 ML IV CONT ×3 (06:11→23:15)
[2019-09-06 06:13] LABS: Hematocrit 34.8 % (42.0-52.0); Mean Corpuscular HGB Conc 31.6 g/dl (32-36); Mean Corpuscular Hemoglobin 28.5 pg (26-34); Mean Corpuscular Volume 90.2 fl (80-100); Mean Platelet Volume 9.9 fl (7.4-10.4); Platelet Count Result 195 k/mm3 (150-375); Red Blood Count 3.86 M/mm3 (4.6-6.20); Red Cell Distribution Width 15.6 % (11.5-14.5); White Blood Count 8.7 K/mm3 (4.5-10.0)
[2019-09-06 06:25] LABS: Potassium 4.6 mmol/L (3.4-5.0)
[2019-09-06 06:29] LABS: Albumin Level 3.5 g/dL (3.5-5.1); Blood Urea Nitrogen 52 mg/dL (9-20); Calcium 8.4 mg/dL (8.4-10.2); Carbon Dioxide 27 mmol/L (22-30); Chloride 106 mmol/L (98-107); Estimated CRCL calculation 29 ml/min; Estimated Glomerular Filt Rate 13; Glucose 111 mg/dL (75-110); Phosphorus 4.8 mg/dL (2.5-4.5); Sodium 138 mmol/L (137-145)
--- NOTE | 2019-09-06 07:33 | PM.PNNEP ---
Progress Note: A&P Assessment and Plan (1) Acute renal failure: Qualifiers: Acute renal failure type: unspecified Qualified Code(s): N17.9 - Acute kidney failure, unspecified Code(s): N17.9 - Acute kidney failure, unspecified Status: Acute Assessment and Plan: Multiple kidney stones in both ureters. Stents are in place. Large amount of urine. Creatinine fell from 7-4. He is eating well. We can stop the IV fluids. (2) Bilateral kidney stones: Code(s): N20.0 - Calculus of kidney Status: Acute Assessment and Plan: Urology managing this. Once procedures have all been done then we can get 24hour urines a month or 2 later to investigate causes of formation of the stones. (3) Hydronephrosis: Qualifiers: Hydronephrosis type: with renal calculous obstruction Qualified Code(s): N13.2 - Hydronephrosis with renal and ureteral calculous obstruction Code(s): N13.30 - Unspecified hydronephrosis Status: Acute Assessment and Plan: Stents in place (4) Essential (primary) hypertension: Code(s): I10 - Essential (primary) hypertension Status: Acute Assessment and Plan: Blood pressure is a bit high. At home he was on hydrochlorothiazide, and ramipril. Will start amlodipine now. Resume the above two when creatinine is better. (5) Hyperkalemia: Code(s): E87.5 - Hyperkalemia Status: Acute Assessment and Plan: . Resolved Additional Plan Subjective Date/time seen: 09/06/19 07:33 Interval history: Patient is alert. He feels better. Urine output is still generous. No problems breathing. Eating is okay. Review of Systems Cardiovascular: Cardiovascular: Reports no additional cardiovascular complaints Respiratory: Respiratory: Reports no additional respiratory complaints Gastrointestinal: Gastrointestinal: Reports no additional gastrointestinal complaints Genitourinary: Genitourinary: Reports no additional male genitourinary complaints Exam Narrative: Exam Narrative: WDWN in NAD skin no rash or subcu nodules head ncat lungs clear bilaterally cor reg no rub abd BS+ nontender and soft ext no edema. Objective Data Vital Signs Vital Signs: Vital Signs - 24 hr 09/05/19 08:00 09/05/19 12:00 09/05/19 18:41 Temperature 36.4 C Pulse Rate 72 75 75 Respiratory Rate 16 Blood Pressure 154/69 H Pulse Oximetry 97 09/05/19 22:00 Temperature 37.2 C Pulse Rate 69 Respiratory Rate 20 Blood Pressure 160/82 H Pulse Oximetry 95 Intake/Output Intake/Output: Intake & Output 09/03/19 09/04/19 09/05/19 09/06/19 23:59 23:59 23:59 23:59 Intake Total 1950 3490 1000 Output Total 375 6600 Balance 1575 -3110 1000 Meds/Results Medications: Active Medications Generic Name Dose Route Start Last Admin Trade Name Freq PRN Reason Stop Dose Admin Acetaminophen 650 mg 09/04/19 12:23 Tylenol Tablet PO Q4H PRN Mild Pain (1-3) or Fever Aspirin 81 mg 09/05/19 09:00 09/05/19 08:59 Aspirin Chewable PO 81 mg DAILY BASSAM Administration Calcium Polycarbophil 1,250 mg 09/05/19 09:00 09/05/19 16:35 Fiber Con PO 1,250 mg BID BASSAM Administration Ezetimibe 10 mg 09/05/19 09:00 09/05/19 08:59 Zetia PO 10 mg DAILY BASSAM Administration Fluticasone Propionate 1 spray 09/05/19 09:00 09/05/19 09:01 Flonase 0.05% Nasal [place] NASAL 1 spray DAILY BASSAM Administration Hydrochlorothiazide 25 mg 09/05/19 09:00 09/05/19 16:35 Hydrochlorothiazide PO 25 mg DAILY BASSAM Administration Sodium Chloride 1,000 mls @ 125 mls/hr 09/05/19 08:10 09/06/19 06:11 Normal Saline Iv IV CONT 125 mls/hr .Q8H BASSAM Administration Nebivolol 5 mg 09/05/19 09:00 09/05/19 08:59 Bystolic PO 5 mg DAILY BASSAM Administration Ondansetron HCl 4 mg 09/04/19 12:23 Zofran Inj IV PUSH Q4H PRN Nausea Pantoprazole Sodium
[2019-09-06 07:44] VITALS: PULSE 66
[2019-09-06] MEDS: calcium polycarbophiL 625 MG TABLET 1250 MG PO ×2 (07:44→17:56)
[2019-09-06] MEDS: NEBIVOLOL HCL 5 MG TABLET PO (07:44)
[2019-09-06] MEDS: ASPIRIN 81 MG CHEWABLE TABLET PO (07:44)
[2019-09-06] MEDS: ramipriL 5 MG CAPSULE 20 MG PO (07:44)
[2019-09-06] MEDS: PANTOPRAZOLE 40 MG TABLET PO (07:44)
[2019-09-06] MEDS: EZETIMIBE 10 MG TABLET PO (07:44)
[2019-09-06] MEDS: FLUTICASONE PROPIONATE 0.05% NA SPR 16 GM BTL (*BKC) 1 SPRAY NASAL (07:44)
[2019-09-06] MEDS: hydroCHLOROthiazide 25 MG TABLET PO (07:44)
--- NOTE | 2019-09-06 08:48 | WPDUROPN2 ---
Progress Note: A&P Assessment and Plan (1) Bilateral kidney stones: Code(s): N20.0 - Calculus of kidney Status: Acute Assessment and Plan: Will obtain KUB for surgical planning, although stones are non obstructive and do not require attention during this hospitalization. (2) Bilateral ureteral calculi: Code(s): N20.1 - Calculus of ureter Status: Acute Assessment and Plan: Resolved, removed during Cystoscopy. (3) Hydronephrosis: Qualifiers: Hydronephrosis type: with renal calculous obstruction Qualified Code(s): N13.2 - Hydronephrosis with renal and ureteral calculous obstruction Code(s): N13.30 - Unspecified hydronephrosis Status: Acute Assessment and Plan: Resolved per ALIVIA 09/05/[address] on 09/04/2019, with stent placement. Stents to be removed in 2-3 weeks in the office. Ok to discharge home at anytime once creatinine returns to baseline, per Urology. Subjective Subjective Date/Time Seen: 09/06/19 08:48 Patient improving, no pain, urine is clearing up as well. Review of Systems Respiratory: Respiratory: Reports no additional respiratory complaints Gastrointestinal: Gastrointestinal: Denies abdominal pain, Denies nausea and Denies vomiting Genitourinary: Genitourinary: Reports no additional male genitourinary complaints Exam Resp: Effort & Inspection: normal respiratory effort Cardio: Rate: regular rate GI: GI Palp: No abdominal tenderness : General: No CVA tenderness Urinary Catheter: Urinary Catheter: patent and draining, urine clear and urine dark Objective Data Vital Signs Vital Signs: Vital Signs - 24 hr 09/05/19 12:00 09/05/19 18:41 09/05/19 22:00 Temperature 97.6 F 99 F Pulse Rate 75 75 69 Respiratory Rate 16 20 Blood Pressure 154/69 H 160/82 H Pulse Oximetry 97 95 09/06/19 06:00 09/06/19 07:44 Temperature 99 F Pulse Rate 66 66 Respiratory Rate 20 Blood Pressure 142/76 H Pulse Oximetry 95 Intake/Output Intake/Output: Intake & Output 09/03/19 09/04/19 09/05/19 09/06/19 23:59 23:59 23:59 23:59 Intake Total 1950 3490 1700 Output Total 375 6600 2950 Balance 1575 3110 -1250 Meds/Results Medications: Active Medications Generic Name Dose Route Start Last Admin Trade Name Freq PRN Reason Stop Dose Admin Acetaminophen 650 mg 09/04/19 12:23 Tylenol Tablet PO Q4H PRN Mild Pain (1-3) or Fever Amlodipine Besylate 2.5 mg 09/06/19 09:00 Norvasc PO QAM BASSAM Aspirin 81 mg 09/05/19 09:00 09/06/19 07:44 Aspirin Chewable PO 81 mg DAILY BASSAM Administration Calcium Polycarbophil 1,250 mg 09/05/19 09:00 09/06/19 07:44 Fiber Con PO 1,250 mg BID BASSAM Administration Ezetimibe 10 mg 09/05/19 09:00 09/06/19 07:44 Zetia PO 10 mg DAILY BASSAM Administration Fluticasone Propionate 1 spray 09/05/19 09:00 09/06/19 07:44 Flonase 0.05% Nasal [place] NASAL 1 spray DAILY BASSAM Administration Hydrochlorothiazide 25 mg 09/05/19 09:00 09/06/19 07:44 Hydrochlorothiazide PO 25 mg DAILY BASSAM Administration Sodium Chloride 1,000 mls @ 125 mls/hr 09/05/19 08:10 09/06/19 06:11 Normal Saline Iv IV CONT 125 mls/hr .Q8H BASSAM Administration Nebivolol 5 mg 09/05/19 09:00 09/06/19 07:44 Bystolic PO 5 mg DAILY BASSAM Administration Ondansetron HCl 4 mg 09/04/19 12:23 Zofran Inj IV PUSH Q4H PRN Nausea Pantoprazole Sodium 40 mg 09/05/19 09:00 09/06/19 07:44 Protonix PO 10/05/19 09:01 40 mg DAILY BASSAM Administration Ramipril 20 mg 09/05/19 09:00 09/06/19 07:44 Altace PO 20 mg DAILY BASSAM Administration Radiology Results: ITS Impressions Abdomen/Pelvis CT 09/04/19 11:01 IMPRESSION: 1. Stones in the bilateral distal ureters and a 4 mm stone in the right renal pelvis with mild bilateral hydroureteronephrosis. 2. Bilateral nephrolithiasis. Retrograde Pyelogram 09/04/19
[2019-09-06] MEDS: AMLODIPINE BESYLATE 2.5 MG TABLET PO (12:02)
--- NOTE | 2019-09-06 13:00 | PM.IMPN ---
Progress Note: A&P Assessment and Plan (1) Hydronephrosis: Qualifiers: Hydronephrosis type: with renal calculous obstruction Qualified Code(s): N13.2 - Hydronephrosis with renal and ureteral calculous obstruction Code(s): N13.30 - Unspecified hydronephrosis Status: Acute Assessment and Plan: 09/06/19 13:01 Nigel Tomas is a 59 year old male morbidly obese male with history of diabetes and hypertension presented emergency department with a complaint bilateral flank pain on and off radiating to his groin and was not able to urinate close to 24 hours Erickson catheter was placed in the emergency depart no urine output, he also had few episode of diarrhea yesterday which have now resolved he denies any nausea vomiting fever or chills, patient has no history of kidney stone. in Emergency department patient had a CT scan of abdomen which showed patient has a bilateral kidney stone with hydronephrosis, discussed with urologist recommending patient will need cystoscopy and removal of the stone and placement of stents, upon arrival patient creatinine was 7 and BUN 55 discussed with security systems engineer suspect most likely secondary to hydronephrosis, seen by security systems engineer and further workup in progress, on 09/03 patient was seen by urologist and taken to urology lab had a cystoscopy and stones were removed stents were placed patient was able to urinate, on 09/04 patient was feeling much better has been producing lot of urine, does not have any abdominal pain nausea or vomiting fever or chills patient creatinine was still elevated to 7. continued to hydrate the patient, today patient creatinine has trended down to 4 will continue present management, patient is seen by security systems engineer and further recommendation to follow (2) Bilateral kidney stones: Code(s): N20.0 - Calculus of kidney Status: Acute Assessment and Plan: Plan is Plan is (3) Type 2 diabetes mellitus without complication, without long-term current use of insulin: Code(s): E11.9 - Type 2 diabetes mellitus without complications Status: Acute Assessment and Plan: Resume home medication and monitor, will hold metformin (4) Essential (primary) hypertension: Code(s): I10 - Essential (primary) hypertension Status: Acute Assessment and Plan: Patient is seen by Nephrology added amlodipine, will hold lisinopril resume once creatinine is close to normal (5) Acute renal failure: Qualifiers: Acute renal failure type: unspecified Qualified Code(s): N17.9 - Acute kidney failure, unspecified Code(s): N17.9 - Acute kidney failure, unspecified Status: Acute Assessment and Plan: Plan is above Subjective Date/time seen: 09/06/19 13:01 Nigel Tomas is a 59 year old male morbidly obese male with history of diabetes and hypertension presented emergency department with a complaint bilateral flank pain on and off radiating to his groin and was not able to urinate close to 24 hours Erickson catheter was placed in the emergency depart no urine output, he also had few episode of diarrhea yesterday which have now resolved he denies any nausea vomiting fever or chills, patient has no history of kidney stone. in Emergency department patient had a CT scan of abdomen which showed patient has a bilateral kidney stone with hydronephrosis, discussed with urologist recommending patient will need cystoscopy and removal of the stone and placement of stents, upon arrival patient creatinine was 7 and BUN 55 discussed with security systems engineer suspect most likely secondary to hydronephrosis, seen by security systems engineer and further workup in progress, on 09/03 patient was seen by urologist and taken to urology lab had a cystoscopy and stones were removed stents were placed patient was able to urinate, on 09/04 patient was feeling much better has been producing lot of urine, does not have any abdominal pain nausea or vomiting fever or chills patient cr
[2019-09-06 14:00] VITALS: BP 150/66; PULSE 60; RESP 16; TEMP 36.3; O2SAT 98
[2019-09-06 21:51] VITALS: BP 140/84; PULSE 64; RESP 18; TEMP 36.8; O2SAT 97
[2019-09-06 23:25] VITALS: PULSE 68; O2SAT 97
[2019-09-07 06:00] VITALS: BP 146/58; PULSE 66; RESP 20; TEMP 36.8; O2SAT 97
[2019-09-07 06:46] LABS: Basophils Percent Auto 0.3 % (0.2-1.2); Eosinophils Absolute Auto 0.5 K/mm3 (0-0.3); Eosinophils Percent Auto 6.7 % (0-4.4); Hematocrit 34.6 % (42.0-52.0); Immature Granulocyte Absolute 0.02 K/mm3 (0.00-0.031); Immature Granulocyte Percent A 0.3 % (0-0.5); Lymphocytes Absolute Auto 1.27 K/mm3 (0.9-3.2); Lymphocytes Percent Auto 17.1 % (18.3-44.2); Mean Corpuscular HGB Conc 31.8 g/dl (32-36); Mean Corpuscular Hemoglobin 28.5 pg (26-34); Mean Corpuscular Volume 89.6 fl (80-100); Mean Platelet Volume 9.5 fl (7.4-10.4); Monocytes Absolute Auto 0.8 K/mm3 (0.1-0.6); Monocytes Percent Auto 10.2 % (2.6-8.5); Neutrophils Absolute Auto 4.9 K/mm3 (1.3-6.7); Neutrophils Percent Auto 65.4 % (45.5-73.1); Platelet Count Result 198 k/mm3 (150-375); Red Blood Count 3.86 M/mm3 (4.6-6.20); Red Cell Distribution Width 15.5 % (11.5-14.5); White Blood Count 7.4 K/mm3 (4.5-10.0)
[2019-09-07] MEDS: SODIUM CHLORIDE 0.9% IV 1,000 ML 125 ML IV CONT (06:53)
[2019-09-07 07:09] LABS: Albumin Level 3.7 g/dL (3.5-5.1); Blood Urea Nitrogen 38 mg/dL (9-20); Calcium 8.5 mg/dL (8.4-10.2); Carbon Dioxide 30 mmol/L (22-30); Chloride 106 mmol/L (98-107); Estimated CRCL calculation 47 ml/min; Estimated Glomerular Filt Rate 23; Glucose 107 mg/dL (75-110); Phosphorus 3.9 mg/dL (2.5-4.5); Potassium 4.1 mmol/L (3.4-5.0); Sodium 139 mmol/L (137-145)
[2019-09-07 08:00] VITALS: PULSE 66; RESP 20; O2SAT 97
[2019-09-07] MEDS: ramipriL 5 MG CAPSULE 20 MG PO (10:00)
[2019-09-07] MEDS: PANTOPRAZOLE 40 MG TABLET PO (10:06)
[2019-09-07] MEDS: AMLODIPINE BESYLATE 2.5 MG TABLET PO (10:09)
[2019-09-07] MEDS: EZETIMIBE 10 MG TABLET PO (10:10)
[2019-09-07] MEDS: calcium polycarbophiL 625 MG TABLET 1250 MG PO (10:11)
[2019-09-07] MEDS: FLUTICASONE PROPIONATE 0.05% NA SPR 16 GM BTL (*BKC) 1 SPRAY NASAL (10:11)
[2019-09-07] MEDS: NEBIVOLOL HCL 5 MG TABLET PO (10:12)
[2019-09-07] MEDS: ASPIRIN 81 MG CHEWABLE TABLET PO (10:13)
[2019-09-07] MEDS: hydroCHLOROthiazide 25 MG TABLET PO (10:13)
[2019-09-07 14:00] VITALS: BP 146/71; PULSE 67; RESP 16; TEMP 36.7; O2SAT 97
--- NOTE | 2019-09-07 16:15 | PM.DS ---
DS: Admitting Diagnosis Admitting Diagnosis Admitting Diagnosis: Hydronephrosis with renal and ureteral calculous obstruction DS: Discharge Diagnosis Discharge Diagnosis (1) Hydronephrosis: Qualifiers: Hydronephrosis type: with renal calculous obstruction Qualified Code(s): N13.2 - Hydronephrosis with renal and ureteral calculous obstruction Code(s): N13.30 - Unspecified hydronephrosis Status: Acute Assessment and Plan: 09/06/19 13:01 Nigel Tomas is a 59 year old male morbidly obese male with history of diabetes and hypertension presented emergency department with a complaint bilateral flank pain on and off radiating to his groin and was not able to urinate close to 24 hours Erickson catheter was placed in the emergency depart no urine output, he also had few episode of diarrhea yesterday which have now resolved he denies any nausea vomiting fever or chills, patient has no history of kidney stone. in Emergency department patient had a CT scan of abdomen which showed patient has a bilateral kidney stone with hydronephrosis, discussed with urologist recommending patient will need cystoscopy and removal of the stone and placement of stents, upon arrival patient creatinine was 7 and BUN 55 discussed with medical information specialist suspect most likely secondary to hydronephrosis, seen by medical information specialist and further workup in progress, on 09/03 patient was seen by urologist and taken to urology lab had a cystoscopy and stones were removed stents were placed patient was able to urinate, on 09/04 patient was feeling much better has been producing lot of urine, does not have any abdominal pain nausea or vomiting fever or chills patient creatinine was still elevated to 7. continued to hydrate the patient, today patient creatinine has trended down to 4 will continue present management, patient is seen by medical information specialist and further recommendation to follow (2) Bilateral kidney stones: Code(s): N20.0 - Calculus of kidney Status: Acute Assessment and Plan: Plan is Plan is (3) Type 2 diabetes mellitus without complication, without long-term current use of insulin: Code(s): E11.9 - Type 2 diabetes mellitus without complications Status: Acute Assessment and Plan: Resume home medication and monitor, will hold metformin (4) Essential (primary) hypertension: Code(s): I10 - Essential (primary) hypertension Status: Acute Assessment and Plan: Patient is seen by Nephrology added amlodipine, will hold lisinopril resume once creatinine is close to normal (5) Acute renal failure: Qualifiers: Acute renal failure type: unspecified Qualified Code(s): N17.9 - Acute kidney failure, unspecified Code(s): N17.9 - Acute kidney failure, unspecified Status: Acute Assessment and Plan: Plan is above DS: Summary Hospital Course Reason for hospitalization: Nigel Tomas is a 59 year old male morbidly obese male with history of diabetes and hypertension presented emergency department with a complaint bilateral flank pain on and off radiating to his groin and was not able to urinate close to 24 hours Erickson catheter was placed in the emergency depart no urine output, he also had few episode of diarrhea yesterday which have now resolved he denies any nausea vomiting fever or chills, patient has no history of kidney stone. in Emergency department patient had a CT scan of abdomen which showed patient has a bilateral kidney stone with hydronephrosis, discussed with urologist recommending patient will need cystoscopy and removal of the stone and placement of stents, upon arrival patient creatinine was 7 and BUN 55 discussed with medical information specialist suspect most likely secondary to hydronephrosis, seen by medical information specialist and further workup in progress, patient denies any complaint of chest pain his able to ambulate without any shortness of breath however is unable to climb any stairs due to his pain in
--- NOTE | 2019-09-07 16:28 | PM.PNNEP ---
Progress Note: A&P Assessment and Plan (1) Acute renal failure: Qualifiers: Acute renal failure type: unspecified Qualified Code(s): N17.9 - Acute kidney failure, unspecified Code(s): N17.9 - Acute kidney failure, unspecified Status: Acute Assessment and Plan: Multiple kidney stones in both ureters. Stents are in place. Large amount of urine. Creatinine fell from 7-4 and now down to around two. He can be discharged from the kidney standpoint. (2) Bilateral kidney stones: Code(s): N20.0 - Calculus of kidney Status: Acute Assessment and Plan: Urology managing this. Once procedures have all been done then we can get 24hour urines a month or 2 later to investigate causes of formation of the stones. He can follow up in the office for this. (3) Hydronephrosis: Qualifiers: Hydronephrosis type: with renal calculous obstruction Qualified Code(s): N13.2 - Hydronephrosis with renal and ureteral calculous obstruction Code(s): N13.30 - Unspecified hydronephrosis Status: Acute Assessment and Plan: Stents in place (4) Essential (primary) hypertension: Code(s): I10 - Essential (primary) hypertension Status: Acute Assessment and Plan: Blood pressure is a bit high. At home he was on hydrochlorothiazide, and ramipril. On amlodipine now. Resume the above two when creatinine is better. (5) Hyperkalemia: Code(s): E87.5 - Hyperkalemia Status: Acute Assessment and Plan: . Resolved Additional Plan Subjective Date/time seen: 09/07/19 16:28 Interval history: Patient is alert. He feels better. Urine output is still generous. Slept well last night. Eating fine. Review of Systems Cardiovascular: Cardiovascular: Reports no additional cardiovascular complaints Respiratory: Respiratory: Reports no additional respiratory complaints Gastrointestinal: Gastrointestinal: Reports no additional gastrointestinal complaints Genitourinary: Genitourinary: Reports no additional male genitourinary complaints Exam Narrative: Exam Narrative: WDWN in NAD skin no rash or subcu nodules head ncat lungs clear bilaterally cor reg no rub abd BS+ nontender and soft ext no edema. Objective Data Vital Signs Vital Signs: Vital Signs - 24 hr 09/06/19 21:51 09/06/19 23:25 09/07/19 06:00 Temperature 36.8 C 36.8 C Pulse Rate 64 68 66 Respiratory Rate 18 20 Blood Pressure 140/84 146/58 H Pulse Oximetry 97 97 97 09/07/19 08:00 09/07/19 14:00 Temperature 36.7 C Pulse Rate 66 67 Respiratory Rate 20 16 Blood Pressure 146/71 H Pulse Oximetry 97 97 Intake/Output Intake/Output: Intake & Output 09/04/19 09/05/19 09/06/19 09/07/19 23:59 23:59 23:59 23:59 Intake Total 1950 3490 5810 2960 Output Total 375 6600 6750 5500 Balance 2694 -6714 -819 -4570 Meds/Results Medications: Active Medications Generic Name Dose Route Start Last Admin Trade Name Freq PRN Reason Stop Dose Admin Acetaminophen 650 mg 09/04/19 12:23 Tylenol Tablet PO Q4H PRN Mild Pain (1-3) or Fever Amlodipine Besylate 2.5 mg 09/06/19 09:00 09/07/19 10:09 Norvasc PO 2.5 mg QAM BASSAM Administration Aspirin 81 mg 09/05/19 09:00 09/07/19 10:17 Aspirin Chewable PO Not Given DAILY [facility] Calcium Polycarbophil 1,250 mg 09/05/19 09:00 09/07/19 10:11 Fiber Con PO 1,250 mg BID BASSAM Administration Ezetimibe 10 mg 09/05/19 09:00 09/07/19 10:10 Zetia PO 10 mg DAILY BASSAM Administration Fluticasone Propionate 1 spray 09/05/19 09:00 09/07/19 10:11 Flonase 0.05% Nasal [place] NASAL 1 spray DAILY BASSAM Administration Hydrochlorothiazide 25 mg 09/05/19 09:00 09/07/19 10:16 Hydrochlorothiazide PO Not Given DAILY BASSAM Sodium Chloride 1,000 mls @ 125 mls/hr 09/05/19 08:10 09/07/19 06:53 Normal Saline Iv IV CONT 125 mls/hr .Q8H BASSAM Administratio
[2019-09-09 15:18] LABS: Chloride Rand Ur 51 mmol/L (32-290); Chloride/Creatinine Rand Ur 72 (23-275); Creatinine Random Urine 71 mg/dL (20-320)
== END 2019-09-07 16:45 | disposition home or self-care (01) | DRG 660 ==
LOC: ANHED 10:20 → ANH3MEDSUR 13:18
PROVIDERS: Internal Medicine; Internal Medicine Nephrology; Urology; Admitting Provider Family Medicine; Emergency Provider Emergency Medicine; PCP Family Medicine; Visit Provider Family Medicine
PROC: 0T788DZ Dilation of Bilateral Ureters with Intraluminal Device, Via Natural or Artificial Opening Endoscopic (ICD-10-PCS; CPT 52352; principal; 2019-09-04 17:00)
DX: N13.2 Hydronephrosis with renal and ureteral calculous obstruction (principal); Z68.44 Body mass index [BMI] 60.0-69.9, adult; N17.9 Acute kidney failure, unspecified; E66.01 Morbid (severe) obesity due to excess calories; E86.0 Dehydration; E87.5 Hyperkalemia; I10 Essential (primary) hypertension; E11.9 Type 2 diabetes mellitus without complications; Z79.82 Long term (current) use of aspirin; Z79.84 Long term (current) use of oral hypoglycemic drugs; Z88.0 Allergy status to penicillin; Z87.891 Personal history of nicotine dependence
CPT/HCPCS: 36415; 74018; 74176; 74420; 76775; 80048; 80053; 80069; 81050; 82365; 82436; 82570; 84156; 84300; 85025; 85027; 85999; 88300; 93005; 96360; 99285; A9270; C1758; C1769; C2617; J0131; J1956; J2001; J2250; J2370; J2405; J2704; J3010; J7030; J7120; Q9966

== ENCOUNTER 2019-10-27 11:23 | Outpatient (CLI) | payer BC, SELFPAY ==
--- NOTE | ~2019-10-27 | US_ITS ---
EXAMINATION: US retroperitoneal comp DATE: 10/27/2019 12:02 INDICATION: Right ureteral stone TECHNIQUE: Multiple grayscale and Doppler ultrasound images of the kidneys were obtained. COMPARISON: 09/05/2019 FINDINGS: There is limited visualization of the kidneys due to body habitus. The right kidney measure s 9.6 x 6.3 x 5.4 cm. The left kidney measures 11.6 x 6.5 x 6.4 cm. The kidneys demonstrate normal pa renchymal echogenicity. No urolithiasis is identified. There is no hydronephrosis. The bladder is nor mal. IMPRESSION: 1. Normal kidneys without hydronephrosis, sensitivity limited by body habitus. No ureterolithiasis i dentified. Reviewed, dictated and finalized at location A. IMPRESSION: 1. Normal kidneys without hydronephrosis, sensitivity limited by body habitus. No ureterolithiasis identified.
== END 2019-10-27 11:24 | disposition home or self-care (01) ==
LOC: ANHIMG 11:25
PROVIDERS: PCP Family Medicine; Visit Provider Urology
DX: N20.1 Calculus of ureter (principal)
CPT/HCPCS: 76770

== ENCOUNTER 2020-07-20 15:42 | Outpatient (CLI) | payer BC, SELFPAY ==
--- NOTE | ~2020-07-20 | XR_ITS ---
XR abdomen/kub 1V 07/20/2020 16:04 Indication: Renal stone Procedure: KUB Comparison: 09/06/2019 Findings: Bowel gas pattern is nonobstructive. No abnormal calcifications. Moderate lumbar spondylosi s. No acute osseous abnormality. Mild osteoarthritis of the hips. Impression: 1: No acute abdominal abnormality. Reviewed, dictated and finalized at location B. Impression: 1: No acute abdominal abnormality.
== END 2020-07-20 15:43 | disposition home or self-care (01) ==
PROVIDERS: PCP Family Medicine; Visit Provider Internal Medicine Nephrology
DX: N20.0 Calculus of kidney (principal)
CPT/HCPCS: 74018

== ENCOUNTER → 2020-12-11 14:47 | Outpatient (CLI) | payer BC, SELFPAY ==
--- NOTE | ~2020-12-11 | XR_ITS ---
XR cervical spine min 6V 12/11/2020 15:16 Indication: Cervicalgia Procedure: 7 views cervical spine Comparison: No prior studies for comparison. Findings: No fracture, subluxation or dislocation. There is mild multilevel uncinate and facet hypert rophy. There is straightening of cervical lordosis. No prevertebral soft tissue swelling. Vertebral b [place] are maintained. Odontoid process within normal limits. Impression: 1: Mild cervical spondylosis. Reviewed, dictated and finalized at location A. Impression: 1: Mild cervical spondylosis.
== END ==
PROVIDERS: PCP Family Medicine; Visit Provider Family Medicine
DX: M47.892 Other spondylosis, cervical region (principal)
CPT/HCPCS: 72052

== ENCOUNTER → 2021-06-26 16:03 | Outpatient (CLI) | payer BC, SELFPAY ==
--- NOTE | ~2021-06-26 | XR_ITS ---
EXAMINATION: XR abdomen/kub 1V DATE: 06/26/2021 16:23 INDICATION: Left kidney stone. TECHNIQUE: A supine view of the abdomen on 2 radiographs was obtained. COMPARISON: Abdomen radiographs 07/20/2020, CT abdomen and pelvis 09/04/2019 FINDINGS: There are no dilated loops of bowel. The kidneys are obscured by bowel. There is no visible urolithiasis. IMPRESSION: 1. No visible urolithiasis. Reviewed, dictated and finalized at location A. IMPRESSION: 1. No visible urolithiasis.
== END ==
PROVIDERS: Visit Provider Internal Medicine Nephrology
DX: N20.0 Calculus of kidney (principal)
CPT/HCPCS: 74018

== ENCOUNTER 2022-02-04 08:42 | Emergency (ER) | payer BC, SELFPAY ==
[2022-02-04 09:09] VITALS: BP 139/70; PULSE 86; RESP 16; TEMP 37.7; O2SAT 97
--- NOTE | 2022-02-04 09:14 | ED.EXTPRO ---
HPI - Extremity Problem General Chief complaint: Extremity Problem,Nontraumatic Stated complaint: left leg pain Time Seen by Provider: 02/04/22 09:15 Source: patient, RN notes reviewed and old records reviewed Mode of arrival: ambulatory Limitations: no limitations History of Present Illness HPI Narrative: 61-year-old male presents to the [facility] with complaints of left leg pain. Patient states pain started Alexei, mid buttock and radiates down his left lateral leg. Occasionally is in his knees. Knows is not his arthritis because less than 2 weeks ago he has received injections in both his knees. Patient states he occasionally gets tingling in his foot. No bruising, swelling, rashes noted to the back or lower leg. Patient denies any increased swelling. Walks with a cane normally. Patient has no midline tenderness. No loss retention of bowel or bladder. No saddle anesthesia Denies any injury. Patient has a history of diabetes Onset (ago): day(s) (4) Related Data Home Medications Medication Instructions Recorded Confirmed aspirin 81 mg chewable tablet 81 mg PO DAILY 09/04/19 02/04/22 allopurinol 300 mg tablet 300 mg PO DAILY 01/19/20 02/04/22 potassium citrate 10 mEq (1,080 10 meq PO TID 12/17/21 02/04/22 mg) tablet,extended release hydrochlorothiazide 25 mg tablet 25 mg PO DAILY 02/04/22 02/04/22 latanoprost 0.005 % eye drops 1 drp EACH EYE DAILY 02/04/22 02/04/22 Allergies Allergy/AdvReac Type Severity Reaction Status Date / Time Penicillins Allergy Unknown Anaphylaxis Verified 02/04/22 09:16 Review of Systems Review of Systems: All systems reviewed & are unremarkable except as noted in HPI and below Constitutional: Constitutional: Reports no additional constitutional complaints, Denies chills and Denies fever(s) Eyes: Eyes: Reports no additional eye complaints ENT: Reports system reviewed and no additional complaints, except as documented Cardiovascular: Cardiovascular: Reports no additional cardiovascular complaints Respiratory: Respiratory: Reports no additional respiratory complaints Gastrointestinal: Gastrointestinal: Reports no additional gastrointestinal complaints Musculoskeletal: Musculoskeletal: Reports as per HPI and Reports back pain (Left) Integumentary/Breasts: Skin/Breast: Reports system reviewed and no additional complaints, except as docu Neurologic: Reports system reviewed and no additional complaints, except as documented Psychiatric: Psychiatric: Reports no additional psychiatric complaints Allergic/Immunologic: Allergic/Immunologic: Reports no additional allergic/immunologic complaints PMFSH Past Medical History Medical History Bilateral kidney stones BMI 50.0-59.9, adult BMI 50.0-59.9, adult Degenerative joint disease of knee Dehydration Diarrhea Essential (primary) hypertension Hearing loss Hydronephrosis Kidney stones Left knee pain Morbid obesity Numbness of right hand DANIEL (obstructive sleep apnea) Renal insufficiency Right knee pain Screening for prostate cancer Testicular hypofunction Type 2 diabetes mellitus without complication, without long-term current use of insulin Vision changes Surgical History Surgical History History of left knee surgery left knee arthroscopy with medial meniscus repair on 11/15/[address] Reis. History of varicocele repair S/P ureteral stent placement 2020 Family History Family History Mother Hypertension Cerebrovascular accident Family history of diabetes mellitus in first degree relative FH: uterine cancer Father Alzheimers disease Other Asthma Diabetes mellitus HLD (hyperlipidemia) Heart disease Social History Social History Smoking packs per day: 1
== END 2022-02-04 09:34 | disposition home or self-care (01) ==
PROVIDERS: Emergency Provider Nurse Practitioner; PCP Family Medicine
DX: M54.32 Sciatica, left side (principal); E11.9 Type 2 diabetes mellitus without complications; I10 Essential (primary) hypertension; Z87.891 Personal history of nicotine dependence
CPT/HCPCS: 99213; G0463

== ENCOUNTER → 2022-02-12 09:08 | Outpatient (CLI) | payer BC, SELFPAY ==
--- NOTE | ~2022-02-12 | XR_ITS ---
EXAM: XR lumbar spine 2-3V DATE: 02/12/2022 09:22 HISTORY: M54.9 - Dorsalgia, unspecified . COMPARISON: CT abdomen and pelvis 09/04/2019. FINDINGS: Mild lumbar scoliosis. 5 nonrib-bearing lumbar-type vertebral bodies. Pedicles intact. Norm al vertebral body alignment. Mild height loss at L3-L5, stable. Multilevel disc space narrowing and m arginal osteophytosis at all lumbar levels, including large bilateral bridging osteophytosis between L2 and L3. Multilevel facet sclerosis and hypertrophy, with interspinous narrowing. No fracture or di slocation. IMPRESSION: Multilevel moderate degenerative disc disease in the lumbar spine. Reviewed, dictated and finalized at location K. ER SODA
== END ==
PROVIDERS: PCP Family Medicine; Visit Provider Nurse Practitioner Family
DX: M51.36 Other intervertebral disc degeneration, lumbar region (principal)
CPT/HCPCS: 72100

== ENCOUNTER → 2022-05-08 16:13 | Outpatient (CLI) | payer BC, SELFPAY ==
--- NOTE | ~2022-05-08 | XR_ITS ---
XR abdomen/kub 1V 05/08/2022 16:28 INDICATION: Renal stones TECHNIQUE: KUB COMPARISON: 06/26/2021 FINDINGS: Bowel gas pattern is normal. There is no evidence of free air, mass, organomegaly, ascites or obstruction. No abnormal calculi are seen. The bones appear intact. There is moderate lumbar sp ondylosis. IMPRESSION: 1: No acute abdominal abnormality identified. Reviewed, dictated and finalized at location A. TEACHER
== END ==
PROVIDERS: PCP Family Medicine; Visit Provider Internal Medicine Nephrology
DX: N20.0 Calculus of kidney (principal)
CPT/HCPCS: 74018

== ENCOUNTER 2023-04-28 15:23 | Outpatient (CLI) | payer BC, SELFPAY ==
--- NOTE | ~2023-04-28 | XR_ITS ---
EXAMINATION: XR abdomen/kub 1V INDICATION: Calculus of the kidney TECHNIQUE: Supine views of the abdomen were obtained on 2 radiographs. COMPARISON: 05/08/2022 FINDINGS: There is no visible urolithiasis. The bowel gas pattern is normal. There is mild osteoarthr itis of the hips. IMPRESSION: 1. No visible urolithiasis. Reviewed, dictated and finalized at location B. LE SECURITY ARCHITECT IMPRESSION: 1. No visible urolithiasis.
== END 2023-04-28 15:24 ==
LOC: MICIMG 15:26
PROVIDERS: PCP Internal Medicine Nephrology; Visit Provider Internal Medicine Nephrology
DX: N20.0 Calculus of kidney (principal)
CPT/HCPCS: 74018

== ENCOUNTER 2024-10-13 08:21 | Outpatient (CLI) | payer BC, SELFPAY ==
--- NOTE | ~2024-10-13 | XR_ITS ---
EXAM/PROCEDURE: XR abdomen/kub 1V - 10/13/2024 8:26 CDT HISTORY: 64 years old Male with N20.1 - Calculus of ureter COMPARISON: None available. TECHNIQUE: AP view(s) of the abdomen. FINDINGS: The bowel gas pattern is normal. There is no evidence for obstruction. Mild stool burden. No radiopaq ue calculus seen on current examination. No free intraperitoneal air is identified on this supine radiograph. The visualized soft tissue shadows are unremarkable. Degenerative changes are seen in spine. Visualized portions of lung bases are clear. IMPRESSION: No acute process. Reviewed, dictated and finalized at location A. IMPRESSION: No acute process.
== END 2024-10-13 08:22 | disposition home or self-care (01) ==
PROVIDERS: PCP Family Medicine; Visit Provider Internal Medicine Nephrology
DX: N20.1 Calculus of ureter (principal); R80.1 Persistent proteinuria, unspecified
CPT/HCPCS: 74018